=== PATIENT | female | born 1955 | race Caucasian/White ===

== ENCOUNTER 2023-12-19 02:32 | Emergency (ER) | payer MEDICARE, BC ==
[~2023-12-19] VITALS: Ht 160 cm; Wt 59.0 kg
[2023-12-19 02:35] VITALS: BP 140/60; PULSE 80; RESP 16; TEMP 98.1; O2SAT 100
[2023-12-19] MEDS: ACETAMINOPHEN 325MG TABLET PO STA (04:18)
[2023-12-19] MEDS ORDERED: NAPR-681 PO (06:19)
== END 2023-12-19 06:44 | disposition home or self-care (01) ==
LOC: ER 02:32
DX: S00.83XA Contusion of other part of head, initial encounter (principal); V98.8XXA Other specified transport accidents, initial encounter; Y93.89 Activity, other specified; Y92.89 Other specified places as the place of occurrence of the external cause; Y99.8 Other external cause status
CPT/HCPCS: 70486; 99284